=== PATIENT | male | born 1950 | race Caucasian/White ===

== ENCOUNTER 2024-05-08 07:25 | Day surgery (SDC) | payer MEDICARE, OTHER ==
[~2024-05-08 07:25] MED LIST: ALBU8.5H8 IH; AMLO10TA55 PO; CARI-493 PO; FLUT16H NASAL; HYDR-4069 PO; HYDR25TA PO; LEVO500 PO; METF-1185 PO; MOME13HF11 IH; MONT-40 PO; OMEP20CA12 PO; PARO-162 PO; PRED10TA3 PO; TEMA30CA PO; TRAM50TA4 PO
[2024-05-08] MEDS ORDERED: LIDOCAINE 4% 50 ML SOLUTION TP ONE (07:26)
[2024-05-08] MEDS ORDERED: LIDOCAINE 2% 11 ML JELLY TP ONE (07:26)
[2024-05-08] MEDS ORDERED: BENZOCAINE 20% 50 MCG/SPRAY 57 GM TP ONE (07:26)
[2024-05-08] MEDS ORDERED: ALBUTEROL SULFATE 2.5 MG/0.5 ML NEB SOLUTION NEB ONE (07:26)
[2024-05-08] MEDS ORDERED: MIDAZOLAM HCL 2 MG/2 ML VIAL ONE (07:56)
[2024-05-08] MEDS ORDERED: FentaNYL CITRATE PF 100 MCG/2 ML VIAL ONE (07:56)
[2024-05-08] MEDS: SODIUM CHLORIDE 0.9% 1,000 ML IV ONE (09:23)
[2024-05-08] MEDS ORDERED: MethylPREDNISolone SOD SUCC 125 MG/2 ML VIAL ONE (09:41)
[2024-05-08 09:55] VITALS: PULSE 105; RESP 16; O2SAT 99
[2024-05-08 09:57] LABS: GLUCOMETER DEV NAME(LOC) SDS.; GLUCOSE,POINT OF CARE 107 MG/DL (70-110)
[2024-05-08] MEDS: MIDAZOLAM HCL 2 MG/2 ML VIAL IVP ONE (09:57)
[2024-05-08] MEDS: FentaNYL CITRATE PF 100 MCG/2 ML VIAL IVP ONE (09:57)
[2024-05-08] MEDS: MethylPREDNISolone SOD SUCC 125 MG/2 ML VIAL IVP ONE (10:32)
[2024-05-08] MEDS: PROMETHAZINE HCL/DEXTROMETH 6.25-15MG/5ML SOLUTION ORAL.SYG PO ONE (10:33)
== END 2024-05-08 16:15 | disposition home or self-care (01) ==
LOC: SURGERY 07:25
PROVIDERS: ATTEND Internal Medicine Critical Care Medicine
DX: R05.3 Chronic cough (principal); R04.2 Hemoptysis; R06.1 Stridor; R91.8 Other nonspecific abnormal finding of lung field
CPT/HCPCS: 31623; 82962; 87206; 87101; 87220; 87070; 31624; 94640; 71045; 87015; J3010; J2250; J2919; 88108; J7613; Z7610